=== PATIENT | male | born 1965 | race Caucasian/White ===

== ENCOUNTER 2018-10-14 11:51 | Observation (INO) ==
--- NOTE | 2018-10-14 12:25 | ED ---
HPI General Chief complaint: Chest Pain Stated complaint: Chest Pain Complaint Time Seen by Provider: 10/14/18 12:10 History of Present Illness HPI narrative: 52-year-old male with a history of hypertension, hyperlipidemia, TIA presents to the emergency department for evaluation of chest pain. Patient states that this morning at 6:30 AM when he woke up he felt intermittent sharp stabbing pain to his left anterior chest. States it has been intermittent since then. States over the last hour or so it has started feeling sore. No aggravating or alleviating factors. Denies any shortness of breath, difficulty breathing, lightheadedness, dizziness, nausea, vomiting, abdominal pain, swelling of the extremities. States that he was admitted 09/25/18 at [facility] for a TIA, at that time he had experienced right arm and right leg weakness with slurred speech which resolved on its own after 10 minutes. He denies any history of blood clots or clotting disorders. Denies any fever, chills, nausea, vomiting, cough or cold symptoms. Denies any previous history of [place] or heart disease. PCP is the [place]. No other complaints. Related Data Home Medications Medication Instructions Recorded Confirmed amlodipine 2.5 mg PO DAILY 10/14/18 10/14/18 aspirin 81 mg PO DAILY 10/14/18 10/14/18 clopidogrel [Plavix] 75 mg PO DAILY 10/14/18 10/14/18 cyanocobalamin (vitamin B-12) 1,000 mcg PO DAILY 10/14/18 10/14/18 [Vitamin B-12] hydrochlorothiazide 25 mg PO DAILY 10/14/18 10/14/18 ofubn-[id number]-[id number]-epa-fish oil [[place]-3 1 tab PO DAILY 10/14/18 10/14/18 Fish Oil] simvastatin 40 mg PO HS 10/14/18 10/14/18 Allergies Allergy/AdvReac Type Severity Reaction Status Date / Time thyphoid vaccine Allergy Severe Seizures Uncoded 10/14/18 12:26 Review of Systems ROS: all other systems reviewed are negative [facility] Medical History Medical History Allergic rhinitis (Acute) Arthritis (Acute) Degenerative disc disease, cervical (Acute) FH: cholecystectomy (Acute) HTN (hypertension) (Acute) Hyperlipidemia (Acute) PTSD (post-traumatic stress disorder) (Acute) TIA (transient ischemic attack) (Acute) Surgical History Surgical History History of adenoidectomy (Acute) S/P cholecystectomy (Acute) Social History Social History Substance History: No History of Abuse Second Hand Smoke Exposure: No Smoking Status: Never smoker How Often Do You Have a Drink Containing Alcohol: Never Hx Recent Travel: No Recent Travel in [facility] within the Last 8 Weeks: No Recent Out of Country Travel within the Last 8 Weeks: No Exam Narrative Exam Narrative: GENERAL: Well-nourished and well-developed pleasant patient in no acute distress who is nontoxic appearing. SKIN: Warm and dry without any obvious rashes or lesions. HEAD: Normocephalic and atraumatic. EYES: No injection, drainage, or hyphema noted. PERRLA. EOMI. ENT: No nasal drainage noted. Oropharynx is clear. NECK: Supple and the trachea is midline. CARDIOVASCULAR: Regular rate and rhythm. RESPIRATORY: Breath sounds are equal bilaterally with no accessory muscle use, wheezing, rhonchi, or crackles. GASTROINTESTINAL: Abdomen is soft, non-tender, and nondistended. MUSCULOSKELETAL: No obvious deformities, swelling, cyanosis, or ecchymosis is present throughout the upper and lower extremities. Patient has full range of motion without any signs of neurovascular compromise. Distal pulses are 2+ throughout. NEUROLOGICAL: Awake, alert, and oriented. Normal speech and gait. Cranial nerves are grossly intact. Course Initial Documented Vital Signs Temperature 98.5 F 10/14/18 12:02 Pulse Rate 68 10/14/18 12:02 Respiratory Rate 20 10/14/18 12:02 Blood Pressure 157/80 H 10/14/18 12:02 Pulse Oximetry 100 10/14/18 12:02 Last Documented Vital Signs Temperature 98.5 F 10/15/18 03:27 Pulse Rate 72 10/15/18 03:27 Respiratory Rate 16 10/15/18 03:27 Blood Pressure 135/70 10/15/18 03:27 Pulse Oximetry 94 L 10/15/18 03:27 Medical Decision Making OSCAR Attestation OSCAR supervised visit: Yes Attestation: No signs of dissection pneumonia or acute airway compromise MDM Narrative Medical decision making narrative: 52-year-old male presents to the emergency department for evaluation of chest pain that began this morning. Patient is afebrile, vital signs are stable. Physical examination is essentially unremarkable. IV access obtained, labs been drawn and sent. Patient is placed on cardiac telemetry and pulse oximetry monitoring. Patient is administered nitro. Patient already took aspirin 324mg and Plavix 75 mg this morning. EKG shows sinus rhythm no acute ST elevations or depressions, reviewed by my attending physician Dr. Gibson. CBC is unremarkable. Coags are unremarkable. CMP is unremarkable. Troponin is less than 0.02. Chest x-ray is negative for any acute abnormalities. CTA is negative for PE. Patient given Nitro 0.4 mg sublingual tablet and his blood pressure dropped to 90s systolic, heart rate to 46 bpm, he complained of lightheadedness and nausea. He was given a liter of fluids and Zofran 4 mg IV. After this his HR and BP are improved and he states his chest pain has resolved. Patient reassessed and reports pain is now a 1 on a scale of 1-10, very mild aching pain. Patient will be admitted to chest pain center for repeat cardiac enzymes, EKGs and possible stress testing. Medical Screen Exam Complete: Yes Emergency Medical Condition: Yes Differential Diagnosis Differential Diagnosis: ACS versus pleurisy versus PE versus angina versus musculoskeletal pain Lab Data Result diagrams: 10/14/18 12:20 10/14/18 12:20 Lab Results 10/14/18 10/14/18 10/14/18 Range/Units 12:20 12:20 12:20 WBC 7.2 (4.0-11.0) th/mm3 RBC 5.43 (4.50-5.90) mil/mm3 Hgb 15.9 (13.0-17.0) gm/dL Hct 45.7 (39.0-51.0) % MCV 84.2 (80.0-100.0) fL MCH 29.3 (27.0-34.0) pg MCHC 34.8 (32.0-36.0) % RDW 13.1 (11.6-17.2) % Plt Count 217 (150-450) th/mm3 MPV 8.4 (7.0-11.0) fL Neut % (Auto) 70.0 (16.0-70.0) % Lymph % (Auto) 16.4 (9.0-44.0) % [place] % (Auto) 11.1 H (0.0-8.0) % Eos % (Auto) 1.5 (0.0-4.0) % Baso % (Auto) 1.0 (0.0-2.0) % Neut # (Auto) 5.0 (1.8-7.7) th/mm3 Lymph # (Auto) 1.2 (1.0-4.8) th/mm3 [place] # (Auto) 0.8 (0.0-0.9) th/mm3 Eos # (Auto) 0.1 (0.0-0.4) th/mm3 Baso # (Auto) 0.1 (0.0-0.2) th/mm3 WBC Differential . Differential Comment Auto diff final PT 10.9 (9.8-11.6) sec INR 1.1 Ratio APTT 22.8 L (23.4-31.7) sec Sodium 139 (136-145) meq/L Potassium 3.5 (3.5-5.1) meq/L Chloride 102 (98-107) meq/L Carbon Dioxide 28.2 (21.0-32.0) meq/L Anion Gap 9 (5-15) meq/L BUN 10 (7-18) mg/dL Creatinine 0.94 (0.60-1.30) mg/dL Estimated GFR 85 L (>89) mL/min Random Glucose 89 (74-106) mg/dL Calcium 10.0 (8.5-10.1) mg/dL Total Bilirubin 1.0 (0.2-1.0) mg/dL AST 32 (15-37) U/L ALT 53 (12-78) U/L Alkaline Phosphatase 80 (45-117) U/L Total Creatine Kinase 90 (39-308) U/L Troponin I Less than 0.02 L (0.02-0.05) ng/mL Total Protein 7.7 (6.4-8.2) g/dL Albumin 4.3 (3.4-5.0) g/dL 10/14/18 10/14/18 10/14/18 Range/Units 12:20 15:45 19:20 WBC (4.0-11.0) th/mm3 RBC (4.50-5.90) mil/mm3 Hgb (13.0-17.0) gm/dL Hct (39.0-51.0) % MCV (80.0-100.0) fL MCH (27.0-34.0) pg MCHC (32.0-36.0) % RDW (11.6-17.2) % Plt Count (150-450) th/mm3 MPV (7.0-11.0) fL Neut % (Auto) (16.0-70.0) % Lymph % (Auto) (9.0-44.0) % [place] % (Auto) (0.0-8.0) % Eos % (Auto) (0.0-4.0) % Baso % (Auto) (0.0-2.0) % Neut # (Auto) (1.8-7.7) th/mm3 Lymph # (Auto) (1.0-4.8) th/mm3 [place] # (Auto) (0.0-0.9) th/mm3 Eos # (Auto) (0.0-0.4) th/mm3 Baso # (Auto) (0.0-0.2) th/mm3 WBC Differential Differential Comment PT (9.8-11.6) sec INR Ratio APTT (23.4-31.7) sec Sodium (136-145) meq/L Potassium (3.5-5.1) meq/L Chloride (98-107) meq/L Carbon Dioxide (21.0-32.0) meq/L Anion Gap (5-15) meq/L BUN (7-18) mg/dL Creatinine (0.60-1.30) mg/dL Estimated GFR (>89) mL/min Random Glucose (74-106) mg/dL Calcium (8.5-10.1) mg/dL Total Bilirubin (0.2-1.0) mg/dL AST (15-37) U/L ALT (12-78) U/L Alkaline Phosphatase (45-117) U/L Total Creatine Kinase Cancelled 71 74 (39-308) U/L Troponin I Less than 0.02 L Less than 0.02 L (0.02-0.05) ng/mL Total Protein (6.4-8.2) g/dL Albumin (3.4-5.0) g/dL Imaging Data Radiologist's impression: Chest CTA 10/14/18 12:21 CONCLUSION: This study is negative for pulmonary embolism. Chest X-Ray 10/14/18 12:21 CONCLUSION: No acute cardiopulmonary disease. Discharge Plan Discharge Disposition Patient Disposition: ED Admit(ED Internal Use Only) Discharge Condition Condition: Stable Discharge Order Discharge Orders: ED Use Only Admit Order (Routine); Ordered 10/14/18 Ordered By: Stephie Quesada Discharge Details Diagnosis: Chest pain Physicians Team ED Provider: Carlos Gibson ED Midlevel Provider: Stephie Quesada Primary Care Provider: Primary Care Avis Sanchez Attending Provider: Jonathan Wyman ED Status: Left Department Discharge Information Discharge Date/Time: 10/14/18 18:12
[2018-10-14 12:53] LABS: Baso # (Auto) 0.1 th/mm3 (0.0-0.2); Eos # (Auto) 0.1 th/mm3 (0.0-0.4); Eos % (Auto) 1.5 % (0.0-4.0); Hematocrit 45.7 % (39.0-51.0); Hemoglobin 15.9 gm/dL (13.0-17.0); Lymph # (Auto) 1.2 th/mm3 (1.0-4.8); Lymph % (Auto) 16.4 % (9.0-44.0); Mean Corpuscular HGB Conc 34.8 % (32.0-36.0); Mean Corpuscular Hemoglobin 29.3 pg (27.0-34.0); Mean Corpuscular Volume 84.2 fL (80.0-100.0); Mean Platelet Volume 8.4 fL (7.0-11.0); Mono # (Auto) 0.8 th/mm3 (0.0-0.9); Mono % (Auto) 11.1 % (0.0-8.0); Platelet Count 217 th/mm3 (150-450); Red Blood Count 5.43 mil/mm3 (4.50-5.90); Red Cell Distribution Width 13.1 % (11.6-17.2); White Blood Count 7.2 th/mm3 (4.0-11.0)
[2018-10-14 13:03] LABS: Activated Partial Thrombo Time 22.8 sec (23.4-31.7); INR 1.1 Ratio; Prothrombin Time 10.9 sec (9.8-11.6)
--- NOTE | 2018-10-14 13:03 | XR ---
EXAM DATE: 10/14/2018 12:55 PM EST AGE/SEX: 52 years / Male INDICATIONS: Chest pain this morning, no shortness of breath CLINICAL DATA: This is the patient's initial encounter. Patient reports that signs and symptoms have been present for 1 day and indicates a pain score of 7/10. MEDICAL/SURGICAL HISTORY: None. None. COMPARISON: No prior exams available for comparison. FINDINGS: A single AP view of the chest demonstrates the lungs to be symmetrically aerated without evidence of mass, infiltrate or effusion. The cardiomediastinal contours are unremarkable. Osseous structures a re intact. CONCLUSION: No acute cardiopulmonary disease. Electronically signed by: Rasheed Dee MD Board Certified Radiologist 10/14/2018 1:02 PM EST
[2018-10-14 13:08] LABS: Albumin 4.3 g/dL (3.4-5.0); Anion Gap 9 meq/L (5-15); Blood Urea Nitrogen 10 mg/dL (7-18); Carbon Dioxide 28.2 meq/L (21.0-32.0); Chloride 102 meq/L (98-107); Glomerular Filtration Rate 85 mL/min (>89); Glucose,Random 89 mg/dL (74-106); Potassium 3.5 meq/L (3.5-5.1); Sodium 139 meq/L (136-145)
[2018-10-14 13:09] LABS: Alanine Aminotransferase 53 U/L (12-78); Aspartate Aminotransferase 32 U/L (15-37)
[2018-10-14 13:12] LABS: Alkaline Phosphatase 80 U/L (45-117); Total Protein 7.7 g/dL (6.4-8.2)
[2018-10-14 13:13] LABS: Creatine Kinase 90 U/L (39-308)
[2018-10-14] MEDS ORDERED: Sod Chloride 0.9% Inj 1,000 ML IV.SIG SCH (13:30)
--- NOTE | 2018-10-14 14:44 | CT ---
EXAM DATE: 10/14/2018 2:39 PM EST AGE/SEX: 52 years / Male INDICATIONS: Left sided chest pain. CLINICAL DATA: This is the patient's initial encounter. Patient reports that signs and symptoms have been present for 1 day and indicates a pain score of 4/10. MEDICAL/SURGICAL HISTORY: Transient ischemic attack. Hypertension. . Adenoidectomy. Cholecystectom y. RADIATION DOSE: 9.84 CTDI (mGy) COMPARISON: No prior exams available for comparison. TECHNIQUE: Volumetric scanning was performed using a multi-row detector CT scanner during bolus infu pérez of 73 ml Omnipaque 350 (iohexol) nonionic water-soluble contrast as a single exam dose. The tracy a was post processed with a variety of visualization algorithms including full volume maximum intensi ty projection and sliding thin slab reformation. Using automated exposure control and adjustment of the mA and/or kV according to patient size, radiation dose was kept as low as reasonably achievable t o obtain optimal diagnostic quality images. DICOM format image data is available electronically for review and comparison. FINDINGS: Pulmonary Arteries: No filling defects are seen in the pulmonary arteries out to the subsegmental ve ssels. The left and right pulmonary arteries are normal in diameter. Lung: Mild dependent posterior atelectasis in the lung bases bilaterally. Effusion: None. Mediastinum: No evidence of mediastinal or hilar adenopathy. Other: The axilla is unremarkable. CONCLUSION: This study is negative for pulmonary embolism. Electronically signed by: Tremayne Rios MD Board Certified Radiologist 10/14/2018 2:42 PM EST
[2018-10-14 16:40] LABS: Creatine Kinase 71 U/L (39-308)
[2018-10-14] MEDS ORDERED: Ibuprofen 400 MG Tablet PO PRN (17:57)
[2018-10-14] MEDS ORDERED: Acetaminophen 325 MG Tablet PO PRN (17:58)
--- NOTE | 2018-10-14 18:16 | P.HPCA ---
History of Present Illness Primary Care Physician: [facility] Chief Complaint: Chest pain History of Present Illness: 52 year old male recently diagnosed with TIA, hypertension, and hyperlipidemia on September 26 presents to ER for further evaluation of chest pain. Reports recent TIA on [place], seen and evaluated at [facility]. During hospital stay reports completing multiple testing including echocardiogram, carotid ultrasound, CT/MRI of brain and neck and because of TIA not identified. Placed on aspirin, Plavix, blood pressure medication, and cholesterol medication. Reports compliance with medication, tolerating well . Reports upon discharge slight right face droop persisted with a slight difficultly in speech. This morning upon awakening noted left anterior chest pain. Characterized as aching with intermittent sharp pains. No associated symptoms of nausea, vomiting, dyspnea, or diaphoresis. Mild to moderate severity. No precipitating factors. Relieving factors morphine given in Er relieved pain for short amount of time, currently pain rated 1/10. Endorses similar pain in the past. 2004 involved in blunt force trauma to left anterior chest and since this time intermittent discomfort. Followed with Dr. Wallace in the past and landscape foreman told him he has arthritis to that area. No known coronary artery disease. Past cardiac testing No recent stress testing. Last exercise stress testing completed 2012 and 2010. No known CAD. No longer follows with landscape foreman due to insurance change nor needed services. Social history Recent diagnosed with hypertension and hyperlipidemia. No known coronary artery disease or diabetes. Lifelong non-smoker. Rare alcohol use. Denies any recreational drug use. Recently retired from [employer] after 32 years of service. Endorses an active lifestyle, recently stopped [employer] running due to knee issues. Family history Noncontributory for early onset cardiovascular disease. - Diagnosis (1) Atypical chest pain (2) Hypertension (3) Hyperlipidemia (4) History of TIA (transient ischemic attack) Review of Systems All other systems reviewed negative except as stated [facility] - History History Provided By: Patient - Medical History Medical History: Medical History (Last Updated 10/14/18 @ 18:10 by ALY Hackett) Allergic rhinitis Arthritis Degenerative disc disease, cervical FH: cholecystectomy HTN (hypertension) Hyperlipidemia PTSD (post-traumatic stress disorder) TIA (transient ischemic attack) - Surgical History Surgical History: Surgical History (Last Updated 10/14/18 @ 18:10 by ALY Hackett) History of adenoidectomy S/P cholecystectomy - Tobacco History Second Hand Smoke Exposure: No Tobacco Use In Past 30 Days: No Smoking Status: Never smoker - Alcohol History How Often Do You Have a Drink Containing Alcohol: Never - Substance Use History Substance History: No History of Abuse - Travel History History of Recent Travel: No Recent Travel in the [place] Within the Last 8 Weeks: No Recent Travel Out of the Country Within the Last 8 Weeks: No - Immunization History Tetanus Immunization: >5 Years Medications and Allergies Active Medications: Active Medications Ibuprofen (Motrin) 400 mg PO Q6H PRN PRN Reason: PAIN SCALE 1 TO 10 Ketorolac Tromethamine (Toradol Inj) 30 mg IV.PUSH ONCE ONE Stop: 10/14/18 17:58 Sodium Chloride (Ns Flush) 2 ml IV.FLUSH PRN PRN PRN Reason: FLUSH AFTER USING IV ACCESS Sodium Chloride (Ns Flush) 2 ml IV.FLUSH BID KISHA Allergies Allergy/AdvReac Type Severity Reaction Status Date / Time thyphoid vaccine Allergy Severe Seizures Uncoded 10/14/18 12:26 Home Medications Medication Instructions Recorded Confirmed Type amlodipine 2.5 mg PO DAILY 10/14/18 10/14/18 History aspirin 81 mg PO DAILY 10/14/18 10/14/18 History clopidogrel [Plavix] 75 mg PO DAILY 10/14/18 10/14/18 History cyanocobalamin (vitamin B-12) 1,000 mcg PO DAILY 10/14/18 10/14/18 History [Vitamin B-12] hydrochlorothiazide 25 mg PO DAILY 10/14/18 10/14/18 History piptc-2g-imi-epa-fish oil [[place]-3 1 tab PO DAILY 10/14/18 10/14/18 History Fish Oil] simvastatin 40 mg PO HS 10/14/18 10/14/18 History Exam Vital signs: Vital Signs 10/14/18 12:02 10/14/18 12:52 10/14/18 13:01 Temperature 98.5 F Pulse Rate 68 54 L 46 L Respiratory Rate 20 16 18 Blood Pressure 157/80 H 98/53 L 127/72 Pulse Oximetry 100 99 99 10/14/18 13:07 Temperature Pulse Rate 54 L Respiratory Rate 16 Blood Pressure 130/74 Pulse Oximetry 100 Intake & Output 01/10/19 01/11/19 01/11/19 18:59 06:59 18:59 Intake Total 1000 / 1000 Balance 1000 / 1000 Weight 86.183 kg Intake: IV 1000 / 1000 NS Inj 1,000 ML @ 1000 mls/hr 1000 / 1000 IV.SIG BOLUS KISHA Rx#:[id number] Narrative: GENERAL: Alert WN, WD, NAD, pleasant, male HEAD: NC, AT ENT: Mucous membranes pink and moist, slight right facial droop, tongue midline NECK: Supple, no masses, trachea midline CV: RRR, without murmur, rub, gallop, no JVD, S1-S2. Point tenderness to left anterior chest easily reproduced with patient. RESP: Clear lungs throughout bilateral, no crackles, wheeze, rhonchi, symmetrical chest rise, nonlabored, able to speak in full sentences ABD: Soft, NT, ND, no masses, positive bowel tones EXT: Pulses +2x4, no dependent edema MS: Normal tone x4 extremities, nontender, no obvious deformities, full range of motion NEURO: Motor strength 5/5, equal foot push/pulls, no arm drift, equal hand gasps , speech slightly slurred with certain words, mostly clear PSYCH: A+O x3, flat affect, appropriate mood, insight and judgment SKIN: Normal turgor, normal texture, no lesions, no rashes, brisk cap refill, even hair distribution Results 10/14/18 12:20 10/14/18 12:20 Cardiac Enzymes 10/14/18 10/14/18 Range/Units 12:20 15:45 AST 32 (15-37) U/L Troponin I Less than 0.02 L Less than 0.02 L (0.02-0.05) ng/mL Coagulation 10/14/18 Range/Units 12:20 PT 10.9 (9.8-11.6) sec APTT 22.8 L (23.4-31.7) sec CBC 10/14/18 Range/Units 12:20 WBC 7.2 (4.0-11.0) th/mm3 RBC 5.43 (4.50-5.90) mil/mm3 Hgb 15.9 (13.0-17.0) gm/dL Hct 45.7 (39.0-51.0) % Plt Count 217 (150-450) th/mm3 Neut # (Auto) 5.0 (1.8-7.7) th/mm3 Lymph # (Auto) 1.2 (1.0-4.8) th/mm3 [place] # (Auto) 0.8 (0.0-0.9) th/mm3 Eos # (Auto) 0.1 (0.0-0.4) th/mm3 Baso # (Auto) 0.1 (0.0-0.2) th/mm3 Comprehensive Metabolic Panel 10/14/18 Range/Units 12:20 Sodium 139 (136-145) meq/L Potassium 3.5 (3.5-5.1) meq/L Chloride 102 (98-107) meq/L Carbon Dioxide 28.2 (21.0-32.0) meq/L BUN 10 (7-18) mg/dL Creatinine 0.94 (0.60-1.30) mg/dL Calcium 10.0 (8.5-10.1) mg/dL AST 32 (15-37) U/L ALT 53 (12-78) U/L Alkaline Phosphatase 80 (45-117) U/L Total Protein 7.7 (6.4-8.2) g/dL Albumin 4.3 (3.4-5.0) g/dL Intake and Output 10/14/18 10/14/18 10/14/18 06:59 14:59 22:59 Intake Total 1000 / 1000 Balance 1000 / 1000 Intake: IV 1000 / 1000 NS Inj 1,000 ML @ 1000 mls/hr 1000 / 1000 IV.SIG BOLUS KISHA Rx#:[id number] Other: Weight 86.183 kg Patient Weight 10/15/18 06:59 Weight 86.183 kg - Imaging and Cardiology Imaging: Impressions Chest CTA 10/14/18 12:21 CONCLUSION: This study is negative for pulmonary embolism. Chest X-Ray 10/14/18 12:21 CONCLUSION: No acute cardiopulmonary disease. EKG interpretations - EKG EKG results cardiology: sinus rhythm, normal axis, normal QRS, normal ST/T Caprini VTE Risk Assessment Caprini VTE Risk Assessment: No/Low Risk (score <= 1) Caprini Risk Assessment Model: Point Value = 1 Point Value = 2 Point Value = 3 Point Value = 5 Age 41-60 Minor surgery BMI > 25 kg/m2 Swollen legs Varicose veins or History of unexplained or recurrent spontaneous Oral contraceptives or hormone replacement Sepsis (< 1 month) Serious lung disease, including pneumonia (< 1 month) Abnormal pulmonary function Acute myocardial infarction Congestive heart failure (< 1 month) History of inflammatory bowel disease Medical patient at bed rest Age 61-74 Arthroscopic surgery Major open surgery (> 45 min) Laparoscopic surgery (> 45 min) Malignancy Confined to bed (> 72 hours) Immobilizing plaster cast Central venous access Age >= 75 History of VTE Family history of VTE Factor V Leiden Prothrombin [id number] Lupus anticoagulant Anticardiolipin antibodies Elevated serum homocysteine Heparin-induced thrombocytopenia Other congenital or acquired thrombophilia Stroke (< 1 month) Elective arthroplasty Hip, pelvis, or leg fracture Acute spinal cord injury (< 1 month) Prophylaxis Regimen: Total Risk Factor Score Risk Level Prophylaxis Regimen 0-1 Low Early ambulation 2 Moderate Order ONE of the following: *Sequential Compression Device (SCD) *Heparin 5000 units SQ BID 3-4 Higher Order ONE of the following medications: *Heparin 5000 units SQ TID *Enoxaparin/Lovenox 40 mg SQ daily (WT < 150 kg, CrCl > 30 mL/min) *Enoxaparin/Lovenox 30 mg SQ daily (WT < 150 kg, CrCl > 10-29 mL/min) *Enoxaparin/Lovenox 30 mg SQ BID (WT < 150 kg, CrCl > 30 mL/min) AND/OR *Sequential Compression Device (SCD) 5 or more Highest Order ONE of the following medications: *Heparin 5000 units SQ TID (Preferred with Epidurals) *Enoxaparin/Lovenox 40 mg SQ daily (WT < 150 kg, CrCl > 30 mL/min) *Enoxaparin/Lovenox 30 mg SQ daily (WT < 150 kg, CrCl > 10-29 mL/min) *Enoxaparin/Lovenox 30 mg SQ BID (WT < 150 kg, CrCl > 30 mL/min) AND *Sequential Compression Device (SCD) Assessment and Plan - Assessment (1) Atypical chest pain Code(s): R07.89 - Other chest pain Status: Acute Plan: Admitted chest pain center. Rule out ACS with 3 sets of EKGs and cardiac enzymes first chest pain center protocol. Will be seen and evaluated by Dr. Jonathan Wyman. Discomfort likely musculoskeletal chest wall pain. Toradol 30 mg IV x1 dose reevaluate in a.m. Discussed possible exercise stress test due to multiple risk factors, this will be determined after evaluation by landscape foreman. Discussed plan of care with patient who is agreeable to plan of care and verbalized understanding. (2) Hypertension Code(s): I10 - Essential (primary) hypertension Status: Chronic Plan: Continue amlodipine and monitoring. Discussed importance of medication compliance and tight blood pressure control. (3) Hyperlipidemia Code(s): E78.5 - Hyperlipidemia, unspecified Status: Chronic Plan: Continue simvastatin. Discussed importance of medication compliance and long- term use due to history of TIA. (4) History of TIA (transient ischemic attack) Code(s): Z86.73 - Personal history of transient ischemic attack (TIA), and cerebral infarction without residual deficits Status: Chronic Plan: Continue Plavix and baby aspirin. Follow-up with primary care provider as previously instructed. (2) Hypertension Qualifiers: Hypertension type: unspecified Qualified Code(s): I10 - Essential (primary) hypertension (3) Hyperlipidemia Qualifiers: Hyperlipidemia type: unspecified Qualified Code(s): E78.5 - Hyperlipidemia, unspecified
[2018-10-14] MEDS ORDERED: Ketorolac Inj 30 MG/ML (IVP) Vial IV.PUSH ONE (19:00)
[2018-10-14 20:30] LABS: Creatine Kinase 74 U/L (39-308)
[2018-10-15 07:48] VITALS: RESP 18
--- NOTE | 2018-10-15 08:58 | P.PNCA ---
Subjective Interval history: No complaints overnight. Reports Toradol given last evening nearly resolved chest pain. Comfort currently rated 1/10 and continues to be reproducible with palpation. Medications and Allergies Active Medications: Active Medications Acetaminophen (Tylenol) 650 mg PO Q4H PRN PRN Reason: PAIN SCALE 1 TO 10 Amlodipine Besylate (Norvasc) 5 mg PO DAILY [facility] Last Admin: 10/15/18 08:51 Dose: 5 mg Aspirin (Aspirin Chew) 81 mg PO DAILY [facility] Last Admin: 10/15/18 08:51 Dose: 81 mg Clopidogrel Bisulfate (Plavix) 75 mg PO DAILY [facility] Last Admin: 10/15/18 08:51 Dose: 75 mg Cyanocobalamin (Vitamin B12) 1,000 mcg PO DAILY [facility] Last Admin: 10/15/18 08:51 Dose: 1,000 mcg Hydrochlorothiazide (Hydrodiuril) 25 mg PO DAILY [facility] Last Admin: 10/15/18 08:51 Dose: 25 mg Ondansetron HCl (Zofran Odt) 4 mg PO Q6H PRN PRN Reason: NAUSEA OR VOMITING Pravastatin Sodium (Pravachol) 80 mg PO [facility] Last Admin: 10/14/18 20:49 Dose: 80 mg Sodium Chloride (Ns Flush) 2 ml IV.FLUSH PRN PRN PRN Reason: FLUSH AFTER USING IV ACCESS Sodium Chloride (Ns Flush) 2 ml IV.FLUSH BID [facility] Last Admin: 10/15/18 08:51 Dose: 2 ml Allergies Allergy/AdvReac Type Severity Reaction Status Date / Time thyphoid vaccine Allergy Severe Seizures Uncoded 10/14/18 12:26 Home Medications Medication Instructions Recorded Confirmed Type amlodipine 2.5 mg PO DAILY 10/14/18 10/14/18 History aspirin 81 mg PO DAILY 10/14/18 10/14/18 History clopidogrel [Plavix] 75 mg PO DAILY 10/14/18 10/14/18 History cyanocobalamin (vitamin B-12) 1,000 mcg PO DAILY 10/14/18 10/14/18 History [Vitamin B-12] hydrochlorothiazide 25 mg PO DAILY 10/14/18 10/14/18 History [id number]-fish oil [[place]-3 1 tab PO DAILY 10/14/18 10/14/18 History Fish Oil] simvastatin 40 mg PO HS 10/14/18 10/14/18 History Physical Exam Vital signs: Vital Signs 10/14/18 12:02 10/14/18 12:52 10/14/18 13:01 Temperature 98.5 F Pulse Rate 68 54 L 46 L Respiratory Rate 20 16 18 Blood Pressure 157/80 H 98/53 L 127/72 Pulse Oximetry 100 99 99 10/14/18 13:07 10/14/18 20:00 10/14/18 20:51 Temperature 99.3 F Pulse Rate 54 L 95 H Respiratory Rate 16 16 Blood Pressure 130/74 156/84 H Pulse Oximetry 100 96 95 10/14/18 23:21 10/15/18 03:27 10/15/18 07:45 Temperature 97.9 F 98.5 F 97.7 F Pulse Rate 56 L 72 66 Respiratory Rate 12 16 18 Blood Pressure 124/66 135/70 128/72 Pulse Oximetry 94 L 94 L 95 Intake & Output 10/14/18 10/15/18 10/15/18 18:59 06:59 18:59 Intake Total 1000 / 1000 Balance 1000 / 1000 Weight 86.183 kg Intake: IV 1000 / 1000 NS Inj 1,000 ML @ 1000 mls/hr 1000 / 1000 IV.SIG BOLUS KISHA Rx#:[id number] Other: Date of Last Bowel Movement 10/14/18 Weight On Admission 86.183 kg - Constitutional no acute distress - Routine HEENT Exam Head: Present: normocephalic, atraumatic ENT: Present: mucous membranes moist, dentition normal - Routine Neck Exam Present: supple, full ROM. Absent: JVD, carotid bruit - Routine Respiratory Exam Present: CTA bilaterally - Routine Cardiovascular Exam Present: RRR, S1, S2. Absent: murmur, gallop, rubs - Routine Extremities Exam Present: full ROM, pulses intact, normal capillary refill. Absent: edema - Routine Skin Exam Present: intact - Routine Neurological Exam Present: alert, oriented X3, normal speech. Absent: facial asymmetry (right facial droop patient reports residual deficit s/p CVA 09/25/18) Results 10/14/18 12:20 10/14/18 12:20 Cardiac Enzymes 10/14/18 10/14/18 10/14/18 Range/Units 12:20 15:45 19:20 AST 32 (15-37) U/L Troponin I Less than 0.02 L Less than 0.02 L Less than 0.02 L (0.02-0.05) ng/mL Coagulation 10/14/18 Range/Units 12:20 PT 10.9 (9.8-11.6) sec APTT 22.8 L (23.4-31.7) sec CBC 10/14/18 Range/Units 12:20 WBC 7.2 (4.0-11.0) th/mm3 RBC 5.43 (4.50-5.90) mil/mm3 Hgb 15.9 (13.0-17.0) gm/dL Hct 45.7 (39.0-51.0) % Plt Count 217 (150-450) th/mm3 Neut # (Auto) 5.0 (1.8-7.7) th/mm3 Lymph # (Auto) 1.2 (1.0-4.8) th/mm3 [place] # (Auto) 0.8 (0.0-0.9) th/mm3 Eos # (Auto) 0.1 (0.0-0.4) th/mm3 Baso # (Auto) 0.1 (0.0-0.2) th/mm3 Comprehensive Metabolic Panel 10/14/18 Range/Units 12:20 Sodium 139 (136-145) meq/L Potassium 3.5 (3.5-5.1) meq/L Chloride 102 (98-107) meq/L Carbon Dioxide 28.2 (21.0-32.0) meq/L BUN 10 (7-18) mg/dL Creatinine 0.94 (0.60-1.30) mg/dL Calcium 10.0 (8.5-10.1) mg/dL AST 32 (15-37) U/L ALT 53 (12-78) U/L Alkaline Phosphatase 80 (45-117) U/L Total Protein 7.7 (6.4-8.2) g/dL Albumin 4.3 (3.4-5.0) g/dL Intake and Output 10/14/18 10/15/18 10/15/18 22:59 06:59 14:59 Other: Date of Last Bowel Movement 10/14/18 Weight 86.183 kg Weight On Admission 86.183 kg - Imaging and Cardiology Imaging: Impressions Chest CTA 10/14/18 12:21 CONCLUSION: This study is negative for pulmonary embolism. Chest X-Ray 10/14/18 12:21 CONCLUSION: No acute cardiopulmonary disease. Assessment and Plan - Assessment (1) Atypical chest pain Code(s): R07.89 - Other chest pain Status: Acute Plan: Admitted chest pain center. Ruled out with 3 sets of EKGs, cardiac enzymes, and monitor on telemetry overnight. Will be seen and evaluated by Dr. Wyman. Likely will proceed with exercise cardiac testing later this morning. (2) Hypertension Code(s): I10 - Essential (primary) hypertension Status: Chronic Plan: Continue amlodipine 5mg po daily. Discussed importance of medication compliance and tight blood pressure control. (3) Hyperlipidemia Code(s): E78.5 - Hyperlipidemia, unspecified Status: Chronic Plan: Continue simvastatin. Discussed importance of medication compliance. (4) History of TIA (transient ischemic attack) Code(s): Z86.73 - Personal history of transient ischemic attack (TIA), and cerebral infarction without residual deficits Status: Chronic Plan: Continue Plavix and baby aspirin. Follow-up with primary care provider as previously instructed. (2) Hypertension Qualifiers: Hypertension type: unspecified Qualified Code(s): I10 - Essential (primary) hypertension (3) Hyperlipidemia Qualifiers: Hyperlipidemia type: unspecified Qualified Code(s): E78.5 - Hyperlipidemia, unspecified
[2018-10-15] MEDS ORDERED: hydroCHLOROthiazide 25 MG Tablet PO SCH (09:00)
[2018-10-15] MEDS ORDERED: amLODIPine 5 MG Tablet PO SCH (09:00)
[2018-10-15] MEDS ORDERED: OMEGA DHA EPA FISH OIL PO SCH (09:00)
--- NOTE | 2018-10-15 10:41 | TR ---
Date Performed: 10/15/2018 Time Performed: 09:34:22 DOCTOR: Jonathan Wyman DRUG LIST: CLINICAL HISTORY: REASON FOR TEST: Chest pain REASON FOR ENDING: OBSERVATION: CONCLUSION: Shane protocol completed. Stopped sec to exceeding target heart rate. Maximum HR=14 9 Max HR Achieved=88.0%. Maximum TR=099/82 Total Exercise Time=9:49. No reprod chest pain. No edtopy . Good exercise tolerance. Baseline st elevation septal leads. Miminal st depression lead V6 at peak. Horizoanly st segments inferiorly. Normal bp response. Recovery otherwise quick and unremarkable. COMMENTS: Flat ST segment depression 1mm V6 and inferiorly, suggest nuclear ETT test.
--- NOTE | 2018-10-15 10:46 | ECG ---
Date Performed: 10/14/2018 Time Performed: 19:35:49 PTAGE: 52 years EKG: SINUS BRADYCARDIA Normal ECG PREVIOUS TRACING : 10/14/2018 16.07 Since previous tracing, no significant change noted DOCTOR: Jonathan Wyman Interpretating Date/Time 10/15/2018 10:44:48
--- NOTE | 2018-10-15 10:47 | ECG ---
Date Performed: 10/14/2018 Time Performed: 16:07:02 PTAGE: 52 years EKG: Sinus rhythm NORMAL ECG PREVIOUS TRACING : 10/14/2018 12.12 Since previous tracing, no significant change noted DOCTOR: Jonathan Wyman Interpretating Date/Time 10/15/2018 10:46:11
[2018-10-15 12:15] VITALS: O2SAT 98
[2018-10-15 15:42] VITALS: BP 160/81; PULSE 87; TEMP 98
--- NOTE | 2018-10-15 15:49 | NM ---
EXAM DATE: 10/15/2018 2:53 PM EST AGE/SEX: 52 years / Male INDICATIONS: Abnormal exercise treadmill test. Angina Mid chest pain for one day. CLINICAL DATA: This is the patient's initial encounter. Patient reports that signs and symptoms have been present for 1 day and indicates a pain score of 3/10. MEDICAL/SURGICAL HISTORY: Hypertension. Stroke. Cholecystectomy. COMPARISON: No prior exams available for comparison. No external comparison. DOSE: 8.7 mCi Tc 99m Myoview at rest 26.6 mCi [id number] at stress REST HEART RATE: 94 BPM TARGET HEART RATE: 145 BPM MAX HEART RATE: 162 BPM REST BLOOD PRESSURE: 128/78 mmHg MAX BLOOD PRESSURE: 136/80 mmHg EJECTION FRACTION: 63 % TECHNIQUE: The patient underwent upright treadmill exercise in the chest pain center. Continuous EC G tracing was monitored during stress. Gated SPECT imaging was performed after stress, and conventio nal SPECT imaging was performed at rest. The examination was performed on a SPECT/CT scanner, both a ttenuation-corrected and non-corrected datasets were reviewed. FINDINGS: Distribution: The maximum perfused segment at stress is in the anterior wall. Perfusion: The pattern of perfusion at stress is within normal limits. Gated Study: There are intact wall motion and wall thickening without hypokinetic or dyskinetic segme nts. The ejection fraction is calculated at 63%. RISK CATEGORY: Low (<1% Annual Mortality Rate) CONCLUSION: 1. No scintigraphic findings of infarct or ischemia. 2. Excellent wall motion throughout been estimated ejection fraction of 63% Electronically signed by: Marko Mathur MD Board Certified Radiologist 10/15/2018 3:48 PM EST
--- NOTE | 2018-10-16 14:50 | TR ---
Date Performed: 10/15/2018 Time Performed: 14:02:28 DOCTOR: Jonathan Wyman DRUG LIST: CLINICAL HISTORY: REASON FOR TEST: Chest pain REASON FOR ENDING: OBSERVATION: CONCLUSION: Shane protocol completed. Stopped sec to exceeding target heart rate. Maximum LH=521 Max HR Achieved=95.0% Maximum PX=882/80 Total Exercise Time=9:55. No reprod chest pain. No ectopy. M inimal st sepression V6 and inferiorly. Recovery quick and unremarkable. Nuclear images pending. COMMENTS: ST depression 1mm V6 and inferiorly,Radionuclide was injected one minute prior to endi ng test. Nuclear imaging and interpretation are pending.
--- NOTE | 2018-10-17 23:45 | ECG ---
Date Performed: 10/14/2018 Time Performed: 12:12:27 PTAGE: 52 years EKG: Sinus rhythm POSSIBLE RIGHT VENTRICULAR CONDUCTION DELAY MODERATE VOLTAGE CRITERIA FOR LVH, CONSIDER NORMAL VARIA NT BORDERLINE ECG NO PREVIOUS TRACING DOCTOR: Fredy Sharpe Interpretating Date/Time 10/17/2018 23:44:24
== END 2018-10-15 18:26 | disposition home or self-care (01) ==
LOC: NEDA 11:51 → NEPC 11:51 → NEPGCP 18:05
CPT/HCPCS: 71010; 71045; 71275; 78452; 80053; 82550; 84484; 85025; 85610; 85730; 90761; 90774; 90784; 93005; 93017; 96361; 96374; 96375; 99285; A9502; C8952; G0378; J1885; J2405; J7030; Q9967; Q9969